=== PATIENT | male | born 1940 | race Asian ===

== ENCOUNTER 2025-02-26 12:19 | Day surgery (SDC) | payer OTHER, SELFPAY ==
[2025-02-18 10:23] VITALS: BMI 22.1
[2025-02-18 10:49] LABS: Hematocrit 46.0 % (39.0-52.0); Hemoglobin 15.5 g/dL (13.0-18.0); Mean Corp Hgb Conc. 33.7 g/dL (33.0-37.0); Mean Corpuscular Volume 91.8 fL (80.0-94.0); Nucleated Red Blood Cells % 0 % (-); Platelet Count 236 10^3/uL (130-400); Red Cell Dist. Width 12.2 % (11.5-14.5)
[2025-02-18 10:55] LABS: INR 1.08; PT 14.3 Sec (11.4-14.6)
[2025-02-18 11:04] LABS: ALT (SGPT) 50 U/L (0-50); AST (SGOT) 48 U/L (17-59); Albumin 4.7 g/dl (3.5-5.0); Alkaline Phosphatase 70 U/L (38-126); Blood Urea Nitrogen 15 mg/dl (9-20); Calcium 9.9 mg/dl (8.4-10.2); Carbon Dioxide 28 mmol/L (22-30); Chloride 101 mmol/L (98-107); Estimated Creatinine Clearance 52 ml/min; Glucose 205 mg/dl (70-99); Magnesium 2.2 mg/dl (1.6-2.3); Potassium 4.0 mmol/L (3.5-5.1); Sodium 139 mmol/L (135-145); Total Protein 7.9 g/dl (6.3-8.2); eGFR > 60.00
[2025-02-26 12:49] VITALS: BP 122/74
--- NOTE | 2025-02-26 16:59 | ITS.CL.PACE ---
[facility] - Pacemaker Implant
Pacemaker Implant
Procedure Report:
Primary Head Bone Grinder: Dr Andreas Epstein
Procedure Date: 02/26/2025
Name of procedure:
1. Device Revision: Single Chamber Pacemaker
2. Pulse Generator Change
History:
See H&P for full details.
Patient is a pleasant 84-year-old Ukrainian speaking male with a past medical history significant for valvular heart disease, pericardial effusion, paroxysmal atrial fibrillation, single-chamber pacemaker due to sick sinus syndrome, hypertension,
hyperlipidemia, diabetes mellitus type 2 who presents with device that is STEFANI and presenting for elective generator change.
Methods:
After informed consent was obtained, the patient was brought to the EP laboratory in a postabsorptive, nonsedated state. Peripheral IV access was established. Prophylactic antibiotics were administered prior to incision. Continues ECG, blood
pressure, and pulse oximetry were initiated. Cardioversion patch electrodes were placed on the patient's chest and back. A grounding patch was applied to the skin. Sedation was administered by anesthesia services.
The left chest was prepared and draped in a sterile fashion. A 'time out' was called. Local anesthesia was injected in the subcutaneous tissue in the infraclavicular area. An incision was made into the chronic scar. With cautious attention to the
leads, the subcutaneous tissue was dissected the level of the device capsule. The capsule was opened, the device was explanted and disconnected from the lead. The lead was inspected and found to be free of visible defect. The lead was tested and
found to have adequate pacing and sensing parameters, consistent with pre-procedure measurements.
The pocket was revised to accommodate the new device. The pocket was flushed with antibiotic solution and hemostasis was assured. Floseal was applied. The generator was connected to the leads and placed inside the pocket. The wound was closed
with 3 running layers of absorbable suture and steri-strips were applied to the skin.
Following the procedure, the patient was taken to the recovery area in stable condition. No complications were noted.
Lead parameters and device programming:
- RV Lead ([employer], model: Setrox S 53, [id number]): Sensing 14.90 mV, Pacing threshold 1.1 V at 0.4 ms, Imp 625 Ohm
- Device: Biotronik pacemaker model: Amvia Edge ST-T, SN#[id number], programmed VVI/CLS 60-120 ppm
- Explanted device: Evia SR-T [id number]
Recommendations:
1. Discharge home when stable with instructions for site care
2. Follow-up will be arranged in our office 7-10 days post-discharge for incision check
oTm Laughlin DO, FACC, FHRS
Clinical Cardiac Electrophysiology
Copy to: Dr Andreas Epstein; Dr Zackary Mccormick
[2025-02-26 17:01] VITALS: BP 111/101
[2025-02-26 17:05] VITALS: BP 111/101
[2025-02-26 17:20] VITALS: BP 111/84
[2025-02-26 17:35] VITALS: BP 116/73
[2025-02-26 17:50] VITALS: BP 127/79
== END 2025-02-26 18:03 | disposition home or self-care (01) ==
LOC: CATH 12:19
PROVIDERS: ATTENDING PHYSICIAN Internal Medicine Cardiovascular Disease; FAMILY PHYSICIAN Internal Medicine; OTHER PHYSICIAN Internal Medicine Cardiovascular Disease
DX: I49.5 Sick sinus syndrome (principal); I48.20 Chronic atrial fibrillation, unspecified; Z79.899 Other long term (current) drug therapy; E11.9 Type 2 diabetes mellitus without complications; E78.5 Hyperlipidemia, unspecified; I10 Essential (primary) hypertension; I08.2 Rheumatic disorders of both aortic and tricuspid valves; I48.0 Paroxysmal atrial fibrillation; Z79.01 Long term (current) use of anticoagulants; Z79.84 Long term (current) use of oral hypoglycemic drugs; I08.8 Other rheumatic multiple valve diseases; Z87.891 Personal history of nicotine dependence
CPT/HCPCS: 33227; 36415; 80053; 83735; 85025; 85610; 93005; C1786